=== PATIENT | female | born 1990 | race Two or more races ===

== ENCOUNTER 2016-12-09 17:56 | Emergency (ER) | payer MEDICAID ==
[~2016-12-09] VITALS: Ht 162.6 cm; Wt 95.1 kg
[2016-12-09] MEDS ORDERED: DIPHENHYDRAMINE 50 MG/ML, 1ML IVPush ONE (19:00)
[2016-12-09] MEDS ORDERED: KETOROLAC 30 MG/1 ML IVPush ONE (19:00)
[2016-12-09] MEDS ORDERED: KETOROLAC 30 MG/1 ML ONE (19:00)
[2016-12-09] MEDS ORDERED: DIPHENHYDRAMINE 50 MG/ML, 1ML ONE (19:00)
[2016-12-09] MEDS ORDERED: SODIUM CHLORIDE 0.9% 1,000ML IVBOLUS ONE (19:00)
[2016-12-09] MEDS ORDERED: METOCLOPRAMIDE 5 MG/ML, 2ML IVPush ONE (19:00)
[2016-12-09] MEDS ORDERED: METOCLOPRAMIDE 5 MG/ML, 2ML ONE (19:00)
[2016-12-09] MEDS ORDERED: SODIUM CHLORIDE FLUSH 10ML SYR IVF ONE (19:00)
[2016-12-09 20:38] VITALS: BP 116/78
== END 2016-12-09 20:41 | disposition home or self-care (01) ==
LOC: ED 18:35
DX: G44.209 Tension-type headache, unspecified, not intractable (principal); F17.200 Nicotine dependence, unspecified, uncomplicated
CPT/HCPCS: 93005; 96361; 96374; 96375; 99284; J1200; J1885; J2765; J7030

== ENCOUNTER 2016-12-10 21:46 | Emergency (ER) | payer MEDICAID ==
[~2016-12-10] VITALS: Ht 162.6 cm; Wt 96.6 kg
[2016-12-10 21:47] VITALS: BP 142/90
[2016-12-11 00:25] LABS: ASPARTATE AMINO TRANSFERASE 34 U/L (15-37); BLOOD UREA NITROGEN 11 mg/dL (7-18)
[2016-12-11 06:14] LABS: HCG UR OBC PASS
== END 2016-12-11 07:07 | disposition home or self-care (01) ==
LOC: ED 23:54
DX: R60.9 Edema, unspecified (principal)
CPT/HCPCS: 36415; 80053; 81001; 81025; 82550; 84703; 85025; 87086; 99284

== ENCOUNTER 2019-06-16 00:46 | Emergency (ER) | payer MEDICAID ==
[2019-06-16 00:48] VITALS: BP 130/61
[2019-06-16 01:08] LABS: BASOPHILS % (AUTO) 0 % (0-1); EOSINOPHILS % (AUTO) 2 % (1-7); LYMPHOCYTES % (AUTO) 28 % (22-44); MEAN CORPUSCULAR HEMOGLOBIN 28.2 pg (27.0-34.8); MEAN CORPUSCULAR HGB CONC 33.1 g/dL (32.4-35.8); MEAN PLATELET VOLUME 7.7 fL (7.4-10.4); MONOCYTES % (AUTO) 7 % (2-9); NEUTROPHILS # (AUTO) 6.25 x10^3/uL (1.8-6.8); NEUTROPHILS % (AUTO) 63 % (42-75); PLATELET COUNT 313 x10^3/uL (130-400); RED CELL DISTRIBUTION WIDTH 13.5 % (9.6-15.2)
[2019-06-16 01:09] LABS: BASOPHILS # (AUTO) 0.04 x10^3/uL (0-0.1); EOSINOPHILS # (AUTO) 0.16 x10^3/uL (0-0.4); LYMPHOCYTES # (AUTO) 2.74 x10^3/uL (1-3.4); MD NO; MONOCYTES # (AUTO) 0.71 x10^3/uL (0.2-0.8)
[2019-06-16 01:21] LABS: ALANINE AMINOTRANSFERASE 28 U/L (12-78); ALBUMIN 3.1 g/dL (3.4-5.0); ANION GAP 7 mmol/L (5-15); CALCIUM 8.6 mg/dL (8.5-10.1); CHLORIDE 105 mmol/L (98-107); CREATININE 0.67 mg/dL (0.55-1.02)
--- NOTE | 2019-06-16 01:24 | NUR ---
RN to bedside as patient returned from bathroom. Informed patient next time a urine sample would need to be provided. Patient agreeable. Attached patient to monitor and pulsatile oxygen sensor. Vital signs within normal limits (see vital signs flowsheet.) surgical instrument technician to bedside, patient now out of room for ultrasound.
[2019-06-16 01:39] LABS: ALKALINE PHOSPHATASE 52 U/L (45-117); BILIRUBIN,TOTAL 0.2 mg/dL (0.2-1.0)
== END 2019-06-16 02:39 | disposition home or self-care (01) ==
LOC: ED 01:31
DX: O20.0 Threatened abortion (principal); Z3A.11 11 weeks gestation of pregnancy
CPT/HCPCS: 36415; 76801; 80053; 84702; 85025; 86901; 99284

== ENCOUNTER 2019-07-21 10:15 | Emergency (ER) | payer MEDICAID ==
[~2019-07-21] VITALS: Ht 162.6 cm; Wt 97.0 kg
--- NOTE | 2019-07-21 10:30 | NUR ---
pt presents to ED with c/o vag bleeding first noted this am at 0100. pt states she had intercourse shortly before onset. pt notes that bleeding was bright red with wipe when voiding, but not enough to need a pad. pt notes discharge became dark red, and is now pink as seen when wiping after void. pt attached to bp and spo2 monitors. call light in reach. pt dressed in gown and provided with warm blanket. spouse with pt. pt a&o, resps even and unlaboredabdirashid. Addendum: 07/21/19 at 1106 by JOSEE pt presents to ED with c/o vag bleeding first noted this am at 0100. pt states she had intercourse shortly before onset. pt notes that bleeding was bright red with wipe when voiding, but not enough to need a pad. pt notes discharge became dark red, and is now pink as seen when wiping after void. Pt states she is 16 weeks , last period date not certain, "it was at the beginning of march." pt attached to bp and spo2 monitors. call light in reach. pt dressed in gown and provided with warm blanket. spouse with pt. pt a&o, resps even and unlaboredabdirashid.
--- NOTE | 2019-07-21 10:55 | NUR ---
pt to US at this time with spouse, maricruzn at transport.
--- NOTE | 2019-07-21 11:22 | NUR ---
pt back from US. pt instructed to provide clean catch ua, pt up to bathroom at this time with steady gait.
--- NOTE | 2019-07-21 11:30 | NUR ---
Pt back in bed, bp and spo2 monitors in place. lab at bedside. urine sent to lab.
--- NOTE | 2019-07-21 11:43 | NUR ---
report given to break RN Bill.
[2019-07-21 11:45] LABS: BASOPHILS # (AUTO) 0.03 x10^3/uL (0-0.1); BASOPHILS % (AUTO) 0 % (0-1); EOSINOPHILS # (AUTO) 0.03 x10^3/uL (0-0.4); EOSINOPHILS % (AUTO) 0 % (1-7); LYMPHOCYTES # (AUTO) 1.84 x10^3/uL (1-3.4); LYMPHOCYTES % (AUTO) 22 % (22-44); MD NO; MEAN CORPUSCULAR HEMOGLOBIN 27.5 pg (27.0-34.8); MEAN CORPUSCULAR HGB CONC 33.2 g/dL (32.4-35.8); MEAN CORPUSCULAR VOLUME 82.9 fL (80-100); MONOCYTES # (AUTO) 0.67 x10^3/uL (0.2-0.8); MONOCYTES % (AUTO) 8 % (2-9); NEUTROPHILS # (AUTO) 5.67 x10^3/uL (1.8-6.8); NEUTROPHILS % (AUTO) 69 % (42-75); PLATELET COUNT 302 x10^3/uL (130-400); RED BLOOD COUNT 4.54 x10^6/uL (3.82-5.3); RED CELL DISTRIBUTION WIDTH 13.3 % (9.6-15.2)
[2019-07-21 11:56] LABS: MICROSCOPIC INDICATED
--- NOTE | 2019-07-21 12:30 | NUR ---
this RN back from break, lab work and US results reviewed by ESTER Denis, awaiting further orders at this time.
[2019-07-21 12:44] LABS: CULTURE INDICATED? NO
--- NOTE | 2019-07-21 13:15 | NUR ---
pt resting on [place], has no complaint at this time. awaiting OB consult and dispo.
--- NOTE | 2019-07-21 13:42 | NUR ---
MD Denis spoke with pt's OBGYN, who states pt has documented RH negative blood. This ED has documented RH positive x 2. MD Denis has ordered Rhogam to be administered, awaiting preparation from blood bank. MD Denis at bedside explaining plan of care to patient and family.
[2019-07-21] MEDS ORDERED: RHOGAM FROM BLOOD BANK 1 NOTE EA IM/IV ONE (14:00)
--- NOTE | 2019-07-21 14:05 | NUR ---
REPEAT LAB DRAW COMPLETED BY PUBLICATIONS MANAGER.
--- NOTE | 2019-07-21 14:22 | NUR ---
RN instructed by MD Denis to administer rhogam when ready, regardless of result of repeat rH. Meal tray ordered with MD bridges. pt updated with POC by .
--- NOTE | 2019-07-21 14:40 | NUR ---
pt denies pain, denies inc in bleeding. pt a&o, resps even and unlabored, nadn. awaiting rhogam to be ready from blood bank.
[2019-07-21 15:06] VITALS: BP 118/70
--- NOTE | 2019-07-21 15:06 | NUR ---
GEOSPATIAL PROGRAM MANAGEMENT OFFICER SECOND RN WORKING SECOND HAND FOR RHOGAM INJECTION- PATIENT THEN MEDICATER PER ORDER
--- NOTE | 2019-07-21 15:17 | NUR ---
consent signed by patient and EDMD. consent form placed in chart. rhogam admin per emar and transfusion documentation, verified by NIKKI Hudson. pt tolerated well. bp and spo2 monitors in place, pt to have repeat VS and dc. pt a&o, resps even and unlabored. report given to NIKKI Herbert.
== END 2019-07-21 15:51 ==
LOC: ED 12:58
DX: O20.0 Threatened abortion (principal); Z3A.16 16 weeks gestation of pregnancy
CPT/HCPCS: 36415; 76815; 81001; 84702; 85025; 86850; 86900; 86901; 96372; 99284; J2790

== ENCOUNTER 2019-11-29 11:47 | Outpatient (CLI) | payer MEDICAID ==
[~2019-11-29] VITALS: Ht 162.6 cm; Wt 101.0 kg
[2019-11-29 12:20] VITALS: BP 126/80
[2019-11-29 12:33] LABS: MICROSCOPIC INDICATED
[2019-11-29] MEDS ORDERED: PREN1TAB10 PO (12:52)
== END 2019-11-29 13:15 | disposition home or self-care (01) ==
LOC: LDOP 11:47
PROVIDERS: ATTEND Student in an Organized Health Care Education/Training Program
DX: O26.893 Other specified pregnancy related conditions, third trimester (principal); R10.9 Unspecified abdominal pain; R60.9 Edema, unspecified; Z3A.35 35 weeks gestation of pregnancy
CPT/HCPCS: 59025; 81001; 84112; 87086; 87147; 99201; G0463

== ENCOUNTER 2019-12-14 23:34 | Outpatient (CLI) | payer MEDICAID ==
[~2019-12-14] VITALS: Ht 162.6 cm; Wt 101.0 kg
[~2019-12-14 23:34] MED LIST: PREN1TAB10 PO
== END 2019-12-15 01:00 | disposition home or self-care (01) ==
LOC: LDOP 23:34
PROVIDERS: ATTEND Student in an Organized Health Care Education/Training Program
DX: O26.893 Other specified pregnancy related conditions, third trimester (principal); R10.9 Unspecified abdominal pain; Z3A.37 37 weeks gestation of pregnancy
CPT/HCPCS: 59025; 99211; G0463

== ENCOUNTER 2019-12-19 05:56 | Inpatient (IN) | payer MEDICAID ==
[~2019-12-19] VITALS: Ht 162.6 cm; Wt 102.5 kg
[2019-12-19] MEDS: LACTATED RINGERS 1,000 ML IV SCH ×5 (06:00→23:31)
[2019-12-19] MEDS ORDERED: OXYTOCIN 30U/ 0.9% NaCL 500ML 500 ML IV ONE (06:19)
[2019-12-19] MEDS ORDERED: D5%-LACTATED RINGERS 1,000 ML IV SCH (06:19)
[2019-12-19 06:27] VITALS: BP 132/87
[2019-12-19] MEDS ORDERED: FENTANYL PF 100 MCG/2ML IV PRN (06:30)
[2019-12-19] MEDS ORDERED: TERBUTALINE 1 MG/ML, 1ML SQ PRN (06:30)
[2019-12-19] MEDS ORDERED: ONDANSETRON 2MG/ML, 2ML IVPush PRN (06:30)
[2019-12-19] MEDS ORDERED: MISOPROSTOL 25 MCG TABLET VG PRN (06:30)
[2019-12-19] MEDS ORDERED: CALCIUM CARBONATE 500 MG TAB.CHEW PO PRN (06:30)
[2019-12-19] MEDS ORDERED: TERBUTALINE 1 MG/ML, 1ML IVPush PRN (06:30)
[2019-12-19] MEDS ORDERED: PENICILLIN GK 5,000,000 UNITS in DEXTROSE 5% 100 ML IVPB ONE (06:30)
[2019-12-19] MEDS ORDERED: MISOPROSTOL 25 MCG TABLET ONE (06:51)
[2019-12-19] MEDS ORDERED: NEWBORN KIT ONE (06:51)
[2019-12-19] MEDS ORDERED: MISOPROSTOL 200 MCG TABLET ONE (06:52)
[2019-12-19] MEDS ORDERED: OXYTOCIN 30U/ 0.9% NaCL 500ML 500 ML ONE ×2 (06:52→19:01)
[2019-12-19 07:01] LABS: BASOPHILS # (AUTO) 0.04 x10^3/uL (0-0.1); BASOPHILS % (AUTO) 1 % (0-1); EOSINOPHILS # (AUTO) 0.02 x10^3/uL (0-0.4); EOSINOPHILS % (AUTO) 0 % (1-7); LYMPHOCYTES # (AUTO) 2.51 x10^3/uL (1-3.4); LYMPHOCYTES % (AUTO) 33 % (22-44); MD NO; MEAN CORPUSCULAR HEMOGLOBIN 26.7 pg (27.0-34.8); MEAN CORPUSCULAR HGB CONC 32.5 g/dL (32.4-35.8); MEAN PLATELET VOLUME 8.7 fL (7.4-10.4); MONOCYTES # (AUTO) 0.71 x10^3/uL (0.2-0.8); MONOCYTES % (AUTO) 9 % (2-9); NEUTROPHILS # (AUTO) 4.44 x10^3/uL (1.8-6.8); NEUTROPHILS % (AUTO) 58 % (42-75); PLATELET COUNT 224 x10^3/uL (130-400); RED BLOOD COUNT 4.75 x10^6/uL (3.82-5.3); RED CELL DISTRIBUTION WIDTH 15.4 % (9.6-15.2)
[2019-12-19 07:19] VITALS: BP 130/73
[2019-12-19] MEDS ORDERED: NPH SQ (08:14)
[2019-12-19] MEDS ORDERED: PENICILLIN GK 2,500,000 UNITS in DEXTROSE 5% 100 ML IVPB SCH (11:00)
[2019-12-19] MEDS ORDERED: FENTANYL PF 100 MCG/2ML ONE ×2 (11:33→13:23)
[2019-12-19] MEDS: FENTANYL PF 100 MCG/2ML IVPush PRN ×2 (11:35→13:32)
[2019-12-19] MEDS ORDERED: OXYTOCIN 30U/ 0.9% NaCL 500ML 500 ML IV PRN (12:35)
[2019-12-19] MEDS ORDERED: FENTANYL/BUPIV./NS/PF 250 ML EPIDCONT ONE (14:14)
[2019-12-19] MEDS ORDERED: FENTANYL/BUPIV./NS/PF 250 ML EPIDCONT SCH (15:31)
[2019-12-19] MEDS ORDERED: LACTATED RINGERS 1,000 ML IVBOLUS PRN (16:00)
[2019-12-19] MEDS ORDERED: NALOXONE 0.4 MG/ML, 1ML IVPush PRN (16:00)
[2019-12-19] MEDS ORDERED: EPHEDRINE 50 MG/ML, 1ML IVPush PRN (16:00)
[2019-12-19] MEDS ORDERED: METHYLERGONOVINE 0.2 MG/ML IM PRN (18:00)
[2019-12-19] MEDS ORDERED: GLYCERIN ADULT SUPP PR PRN (18:00)
[2019-12-19] MEDS ORDERED: OXYcodone/APAP 5/325MG TABLET PO PRN (18:00)
[2019-12-19] MEDS ORDERED: SIMETHICONE 80 MG CHEW TAB PO PRN (18:00)
[2019-12-19] MEDS ORDERED: ACETAMINOPHEN 325 MG TABLET PO PRN (18:00)
[2019-12-19] MEDS ORDERED: METOCLOPRAMIDE 5 MG/ML, 2ML IV PRN (18:00)
[2019-12-19] MEDS ORDERED: BISACODYL 10 MG SUPP PR PRN (18:00)
[2019-12-19] MEDS ORDERED: MISOPROSTOL 200 MCG TABLET PR PRN (18:00)
[2019-12-19] MEDS ORDERED: ONDANSETRON 2MG/ML, 2ML IV PRN (18:00)
[2019-12-19] MEDS ORDERED: OXYcodone IR 5MG TABLET PO PRN (18:00)
[2019-12-19] MEDS ORDERED: CARBOPROST TROMETHAMINE 250 MCG/ML, 1ML IM PRN (18:00)
[2019-12-19] MEDS ORDERED: IBUPROFEN 800 MG TABLET PO PRN (18:00)
[2019-12-19] MEDS: OXYTOCIN 30U/ 0.9% NaCL 500ML 500 ML IV SCH (19:06)
[2019-12-19] MEDS: IBUPROFEN 600 MG TABLET PO PRN (20:56)
[2019-12-19 21:21] VITALS: BP 109/71
[2019-12-20 00:20] VITALS: BP 107/66
[2019-12-20 01:32] LABS: BASOPHILS # (AUTO) 0.04 x10^3/uL (0-0.1); BASOPHILS % (AUTO) 0 % (0-1); EOSINOPHILS % (AUTO) 0 % (1-7); LYMPHOCYTES # (AUTO) 2.19 x10^3/uL (1-3.4); LYMPHOCYTES % (AUTO) 21 % (22-44); MD NO; MEAN CORPUSCULAR HEMOGLOBIN 26.7 pg (27.0-34.8); MEAN CORPUSCULAR HGB CONC 32.9 g/dL (32.4-35.8); MEAN PLATELET VOLUME 8.8 fL (7.4-10.4); MONOCYTES % (AUTO) 8 % (2-9); NEUTROPHILS # (AUTO) 7.65 x10^3/uL (1.8-6.8); NEUTROPHILS % (AUTO) 72 % (42-75); PLATELET COUNT 195 x10^3/uL (130-400); RED BLOOD COUNT 4.28 x10^6/uL (3.82-5.3); RED CELL DISTRIBUTION WIDTH 15.4 % (9.6-15.2)
[2019-12-20] MEDS: OXYTOCIN 30U/ 0.9% NaCL 500ML 500 ML IV SCH ×3 (03:40→23:40)
[2019-12-20 04:08] VITALS: BP 110/64
[2019-12-20 07:41] VITALS: BP 110/77
[2019-12-20] MEDS: PRENATAL VIT/IRON/FA 1 EACH TABLET PO SCH (09:25)
[2019-12-20] MEDS: DOCUSATE 100 MG CAPSULE PO PRN (09:25)
[2019-12-20] MEDS: IBUPROFEN 600 MG TABLET PO PRN ×3 (09:25→23:34)
[2019-12-20 12:00] VITALS: BP 115/79
[2019-12-20] MEDS ORDERED: LIDOCAINE/PF 1.5%-EPI 1:200K, 30ML ONE (14:55)
[2019-12-20] MEDS ORDERED: FENTANYL/BUPIV./NS/PF 250 ML EPIDCONT ONE (14:55)
[2019-12-20] MEDS ORDERED: LIDOCAINE 1%, 20ML ONE (14:55)
[2019-12-20 16:46] VITALS: BP 128/86
[2019-12-20 20:45] VITALS: BP 113/77
[2019-12-21 07:04] VITALS: BP 126/86
[2019-12-21] MEDS: IBUPROFEN 600 MG TABLET PO PRN ×2 (08:10→15:21)
[2019-12-21] MEDS: DOCUSATE 100 MG CAPSULE PO PRN (08:10)
[2019-12-21] MEDS: PRENATAL VIT/IRON/FA 1 EACH TABLET PO SCH (08:10)
[2019-12-21] MEDS: OXYTOCIN 30U/ 0.9% NaCL 500ML 500 ML IV SCH (09:40)
[2019-12-21] MEDS ORDERED: IBUP-1222 PO (10:50)
== END 2019-12-21 17:00 | disposition home or self-care (01) | DRG 807 ==
LOC: LDIP 05:56 → 2NW 19:27
PROVIDERS: ADMIT Student in an Organized Health Care Education/Training Program; ATTEND Student in an Organized Health Care Education/Training Program
PROC: 10E0XZZ Delivery of Products of Conception, External Approach (ICD-10-PCS; principal; 2019-12-19)
PROC: 0HQ9XZZ Repair Perineum Skin, External Approach (ICD-10-PCS; 2019-12-19)
PROC: 3E0R3BZ Introduction of Anesthetic Agent into Spinal Canal, Percutaneous Approach (ICD-10-PCS; 2019-12-19)
PROC: 00HU33Z Insertion of Infusion Device into Spinal Canal, Percutaneous Approach (ICD-10-PCS; 2019-12-19)
DX: O24.424 Gestational diabetes mellitus in childbirth, insulin controlled (principal); Z37.0 Single live birth; O70.0 First degree perineal laceration during delivery; O99.824 Streptococcus B carrier state complicating childbirth; Z3A.38 38 weeks gestation of pregnancy; Z83.3 Family history of diabetes mellitus
CPT/HCPCS: 36415; J3490; 82962; 85025; 86592; 86850; 86900; G0378; J2540; J3010; J2590; J7120